=== PATIENT | male | born 1995 | race Two or more races ===

== ENCOUNTER 2020-10-27 13:59 | Emergency (ER) | payer OTHER ==
[~2020-10-27] VITALS: Ht 172.7 cm; Wt 105.0 kg
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
[2020-10-27] MEDS ORDERED: LORA10CA PO (14:11)
[2020-10-27] MEDS ORDERED: ALBU0.63 NEB (14:11)
--- NOTE | 2020-10-27 14:17 | NUR ---
PT IS IN SAFE ROOM WITH GARAGE DOORS DOWN AND SITTER OUTSIDE DOOR WITHIN VIEW. PROVIDER AT BEDSIDE FOR EVAL.
[2020-10-27 14:34] LABS: BASOPHILS % (AUTO) 1 % (0-1); EOSINOPHILS % (AUTO) 3 % (1-7); LYMPHOCYTES % (AUTO) 30 % (22-44); MEAN CORPUSCULAR HEMOGLOBIN 31.7 pg (27.5-34.5); MEAN PLATELET VOLUME 8.5 fL (7.4-10.4); MONOCYTES % (AUTO) 7 % (2-9); NEUTROPHILS % (AUTO) 59 % (42-75); PLATELET COUNT 241 x10^3/uL (130-400); RED BLOOD COUNT 5.06 x10^6/uL (4.38-5.82); RED CELL DISTRIBUTION WIDTH 12.7 % (9.4-14.8)
[2020-10-27 14:36] LABS: MD NO
[2020-10-27 14:44] LABS: ALBUMIN 3.8 g/dL (3.4-5.0); ANION GAP 6 mmol/L (5-15); CHLORIDE 108 mmol/L (98-107)
[2020-10-27 14:48] LABS: SALICYLATE LEVEL < 1.7 mg/dL (2.8-20.0)
[2020-10-27 14:49] LABS: AMPHETAMINE SCREEN, URINE Negative (Negative); BARBITURATE SCREEN, URINE Negative (Negative); BENZODIAZEPINE SCREEN, URINE Negative (Negative); CANNABINOID SCREEN, URINE Positive (Negative); COCAINE SCREEN, URINE Negative (Negative); METHADONE SCREEN, URINE Negative (Negative); OPIATE SCREEN, URINE Negative (Negative)
--- NOTE | 2020-10-27 16:18 | NUR ---
PT RESTING COMFORTABLY SPEAKING WITH CECILIA FOR MENTAL HEALTH EVAL
--- NOTE | 2020-10-27 18:06 | NUR ---
pt provided with dinner tray. resting comfortably with sitter outside door within view. garage doors down.
--- NOTE | 2020-10-27 18:29 | NUR ---
PACKET FAXED TO [facility], [facility] AND [facility]
[2020-10-27] MEDS ORDERED: QUETIAPINE 25MG TABLET PO ONE (18:30)
[2020-10-27] MEDS ORDERED: QUETIAPINE 25MG TABLET ONE (18:44)
--- NOTE | 2020-10-27 18:52 | NUR ---
BEDSIDE REPORT FROM DEMETRIA KRAMER, PT CARE TRANSFERRED AT THIS TIME. PT RESTING ON GURNEY, NAD, APPEARS COMFORTABLE, DENIES ADDITIONAL NEEDS, BED IN LOWEST, RAILS ENGAGED, CALL LIGHT ON LAP, SI PRECAUTIONS IN PLACE, SITTER IN LINE OF SIGHT, WCTM.
--- NOTE | 2020-10-27 18:52 | NUR ---
report to Raffaele KRAMER
--- NOTE | 2020-10-27 18:57 | NUR ---
ZORAN REPORTS THAT [facility] ACCEPTING PT.
--- NOTE | 2020-10-27 19:42 | NUR ---
GARETH RN CALLED FROM [facility] FOR REPORT, PT TO BE SENT OVER AROUND 2200. ACCEPTING PROVIDER IS JESSICA PT RESTING ON GURNEY, LIGHTS DIMMED, EYES CLOSED, EVEN AND UNLABORED RESPIRATIONS, NAD, SITTER IN LINE OF SIGHT, ROOM SECURED, BED IN LOWEST, RAILS ENGAGED, WCTM
[2020-10-27 19:50] VITALS: BP 113/78
--- NOTE | 2020-10-27 21:14 | NUR ---
PT RESTING ON GURNEY, NAD, EYES CLOSED, LIGHTS DIMMED, EVEN AND UNLABORED RESPIRATIONS, APPEARS COMFORTABLE, ROOM SECURED, SITTER IN LINE OF SIGHT, WCTM. WAITING FOR [facility] TRANSPORT TO [facility]
--- NOTE | 2020-10-27 22:24 | NUR ---
PT DEPARTED WITH [facility] [place] PROVIDED BELONGINGS BERHANE SPARKS.
== END 2020-10-27 22:25 ==
LOC: ED 17:39
DX: R45.851 Suicidal ideations (principal); F32.9 Major depressive disorder, single episode, unspecified
CPT/HCPCS: 36415; 80048; 80299; 80307; 80320; 80329; 82040; 85025; 99285; G0480